=== PATIENT | female | born 1985 | race Caucasian/White ===

== ENCOUNTER → 2018-02-17 | Day surgery (SDC) | payer OTHER ==
[~2018-02-17] MED LIST: ACETAMINOPHEN 1000 MG/100 ML 100 ML IV ONE; BACITRACIN IM FOR SOLN 50,000 UNIT VIAL ONE; BUPIVACAINE/EPINEPHRINE 0.5% PF 30 ML VIAL ONE; GENTAMICIN SULFATE 80 MG/2 ML VIAL ONE; IBUP600 PO; KETOROLAC TROMETHAMINE 30 MG/ML (IVP) VIAL IV PUSH ONE; LACTATED RINGER'S 1000 ML INJ 1,000 ML ONE; LIDOCAINE 1%/EPINEPHrine 1:100,000 SOLN 30 ML VIAL ONE; MEPERIDINE HCL 25 MG/ML VIAL ONE; MIDAZOLAM HCL 2 MG/2 ML VIAL ONE; ONDANSETRON HCL 4 MG/2 ML VIAL IV PUSH ONE; PROPOFOL 200 MG/20 ML AMP IV ONE; ceFAZolin INJ 1,000 MG VIAL ONE
--- NOTE | 2018-02-17 09:47 | TN ---
cc: Juan Maria MD DATE OF SURGERY: 02/17/2018 DATE OF PROCEDURE: 02/17/2018 PREOPERATIVE DIAGNOSIS: breast atrophy. PROCEDURE PERFORMED: Bilateral augmentation mammoplasty. SURGEON: Juan Maria MD, [facility] ANESTHESIA: LMA general, plus a breast block with a total of 60 mL of a combination of 1% lidocaine with epinephrine mixed with 0.25% Marcaine in a 2:1 ration. COMPLICATIONS: None. IMPLANT DATA, PLACEMENT AND TECHNIQUE: Inframammary and retropectoral cohesive gel, Taniyae Inspira SRM, volume 360 mL, serial number of the right breast implant device [id number] and serial data number of the left breast implant device [id number]. PROCEDURE IN DETAIL: She was properly consented and marked, anesthetized, the skin sterilized with Betadine solution and then breast block was performed and isolation of the nipple areola took place at this point. I proceeded to perform an inframammary incision of 3.5-4.5 m, through which I encountered the retropectoral plane, inferomedial fibers of the pectoralis major muscle was released completing the pocket. Isolation of the pocket with the skin at this point was done with Tegaderm. The contralateral side was approached in exactly same manner and assuring the best symmetry possible, I proceeded to introduce the implant utilizing no-touch technique. I proceeded to sit the patient up to achieve symmetry of possible. Blunt dissection was done to achieve best symmetry possible and after that, the wounds were closed with multiple 2-0 Monocryl suture layers in the breast parenchyma, Charli's fascia, dermis and subcutaneous. Mastisol and Steri-Strips were applied thereafter along with sterile 4 x 4's and a snug brassiere. He was awakened, extubated in the operating room and transferred back to Postanesthesia Care Unit in stable condition. No complications appreciated. The patient tolerated the procedure fairly well. MD RENE Soria/MIRTA , 09:29 AM , 09:46 AM
== END | disposition home or self-care (01) ==
LOC: ESDC 07:23
PROVIDERS: ATTEND Plastic Surgery
DX: Z41.1 Encounter for cosmetic surgery (principal)
CPT/HCPCS: 00402; 19325; C1789; J0131; J0690; J1580; J1885; J2175; J2250; J2405; J3010; J7120